=== PATIENT | male | born 1960 | race Caucasian/White ===

== ENCOUNTER → 2020-09-04 | Outpatient (CLI) | payer BC ==
[~2020-09-04] MED LIST: ALEVE PM CAPLE1 EACH PO; ALEVE220 MG PO; BACTRIM DS TAB1 EACH PO; GABAPENTIN300 MG PO; GLUCOPHAGE 500500 MG PO; GLUCOTROL5 MG PO; SEROQUEL TAB 2525 MG PO
== END ==
LOC: KOH-I 13:34
DX: M79.671 Pain in right foot (principal); M79.672 Pain in left foot
CPT/HCPCS: 73630

== ENCOUNTER 2020-09-12 09:49 | Inpatient (IN) | payer BC ==
[~2020-09-12] VITALS: Ht 182.9 cm; Wt 83.5 kg
[2020-09-12 11:06] LABS: HEMOGLOBIN 12.9 gm/dl (14.0-17.5); RED BLOOD COUNT 4.23 M/UL (4.20-5.50); WHITE BLOOD COUNT 7.6 K/UL (4.5-11.0)
[2020-09-12 11:40] LABS: BUN/CREATININE RATIO 29 (0-10)
[2020-09-12] MEDS ORDERED: GABAPENTIN300 MG PO (13:23)
[2020-09-12] MEDS ORDERED: GLUCOTROL5 MG PO (13:24)
[2020-09-12] MEDS ORDERED: BACTRIM DS TAB1 EACH PO (13:24)
[2020-09-12] MEDS ORDERED: SEROQUEL TAB 2525 MG PO (13:24)
[2020-09-12] MEDS ORDERED: ALEVE PM CAPLE1 EACH PO (13:25)
[2020-09-12] MEDS ORDERED: ALEVE220 MG PO (13:25)
[2020-09-12] MEDS ORDERED: GLUCOPHAGE 500500 MG PO (13:25)
[2020-09-13 01:01] LABS: HEMOGLOBIN 12.5 gm/dl (14.0-17.5); RED BLOOD COUNT 4.15 M/UL (4.20-5.50); WHITE BLOOD COUNT 5.9 K/UL (4.5-11.0)
[2020-09-13 01:23] LABS: BUN/CREATININE RATIO 23 (0-10)
[2020-09-14 03:58] LABS: BUN/CREATININE RATIO 21 (0-10)
--- NOTE | 2020-09-15 07:05 | NUR ---
PATIENT STATES HE ATE CRACKERS AND DRANK WATER THIS AM. PROCEDURE IS SCHEDULED FOR TODAY. PATIENT IS SUPPOSED TO BE NPO. FOOD AND DRINK REMOVED FROM BEDSIDE AND PATIENT REEDUCATED ON BEING NPO FOR THE PROCEDURE AND RISK FOR ASPIRATION. PATIENT VERBALIZES UNDERSTANDING. WILL NOTIFY CARDIOLOGY.
[2020-09-15 08:38] LABS: HEMOGLOBIN 13.6 gm/dl (14.0-17.5); WHITE BLOOD COUNT 5.4 K/UL (4.5-11.0)
[2020-09-15 08:54] LABS: RED BLOOD COUNT 4.58 M/UL (4.20-5.50)
[2020-09-15 09:24] LABS: BUN/CREATININE RATIO 23 (0-10)
--- NOTE | 2020-09-15 16:00 | NUR ---
REPORT CALLED TO ANTHONY HOLLEY AT [facility] FOR TRANSPORT. PATIENT WILL BE TRANSPORTED ALS.
--- NOTE | 2020-09-15 17:54 | NUR ---
[facility]ON RETURN FROM [facility] AT 1147, DURING REASSESSMENT IT WAS NOTICED THAT THE RIGHT GREAT TOE DRESSING WAS REMOVED. OFFERED TO REDRESS THE TOE BUT PATIENT DECLINED. AT THIS TIME PATIENT IS STILL REFUSING THE DRESSING TO BE PLACED.
== END 2020-09-15 18:48 | disposition short-term general hospital (02) | DRG 286 ==
LOC: ER1 09:49 → CDU 12:58 → PROG CARE 15:00
PROVIDERS: Family Medicine; Internal Medicine Cardiovascular Disease; Physician Assistant Medical; ADMIT Internal Medicine Infectious Disease
PROC: B24BZZ4 Ultrasonography of Heart with Aorta, Transesophageal (ICD-10-PCS; 2020-09-12)
PROC: 4A023N7 Measurement of Cardiac Sampling and Pressure, Left Heart, Percutaneous Approach (ICD-10-PCS; principal; 2020-09-15)
PROC: B2151ZZ Fluoroscopy of Left Heart using Low Osmolar Contrast (ICD-10-PCS; 2020-09-15)
PROC: B2111ZZ Fluoroscopy of Multiple Coronary Arteries using Low Osmolar Contrast (ICD-10-PCS; 2020-09-15)
DX: I50.23 Acute on chronic systolic (congestive) heart failure (principal); J96.01 Acute respiratory failure with hypoxia; I25.5 Ischemic cardiomyopathy; I25.10 Atherosclerotic heart disease of native coronary artery without angina pectoris; F17.210 Nicotine dependence, cigarettes, uncomplicated; J44.9 Chronic obstructive pulmonary disease, unspecified; Z20.822 Contact with and (suspected) exposure to COVID-19; E11.65 Type 2 diabetes mellitus with hyperglycemia; G47.00 Insomnia, unspecified; E11.43 Type 2 diabetes mellitus with diabetic autonomic (poly)neuropathy; L97.519 Non-pressure chronic ulcer of other part of right foot with unspecified severity; D64.9 Anemia, unspecified; I08.1 Rheumatic disorders of both mitral and tricuspid valves; E11.621 Type 2 diabetes mellitus with foot ulcer; E11.51 Type 2 diabetes mellitus with diabetic peripheral angiopathy without gangrene; Z79.4 Long term (current) use of insulin; Z90.49 Acquired absence of other specified parts of digestive tract; Z82.49 Family history of ischemic heart disease and other diseases of the circulatory system; Z83.3 Family history of diabetes mellitus; Z79.82 Long term (current) use of aspirin
CPT/HCPCS: ECHO; 36415; 36600; 71045; 80048; 80053; 81001; 82550; 82553; 82803; 82962; 83605; 83735; 83874; 83880; 84439; 84443; 84484; 85025; 85027; 85610; 93005; 93306; 93925; 96374; 99152; 99153; 99285; C1769; J1644; J1940; J2250; J2370; J3010; J7040; Q9967; U0002

== ENCOUNTER → 2020-10-07 | Outpatient (CLI) | payer BC ==
[2020-10-07 12:07] LABS: HEMOGLOBIN 11.9 gm/dl (14.0-17.5); RED BLOOD COUNT 4.08 M/UL (4.20-5.50); WHITE BLOOD COUNT 5.7 K/UL (4.5-11.0)
[2020-10-07 12:24] LABS: BUN/CREATININE RATIO 20 (0-10)
== END ==
LOC: LAB 11:01
PROVIDERS: Internal Medicine Cardiovascular Disease
DX: I11.0 Hypertensive heart disease with heart failure (principal); I50.9 Heart failure, unspecified; I25.10 Atherosclerotic heart disease of native coronary artery without angina pectoris; R60.9 Edema, unspecified; E78.5 Hyperlipidemia, unspecified
CPT/HCPCS: 36415; 80048; 83880; 85025